=== PATIENT | female | born 1990 | race Caucasian/White ===

== ENCOUNTER 2019-01-17 16:54 | Emergency (ER) | payer BC, MEDICAID ==
[~2019-01-17] VITALS: Ht 154.9 cm; Wt 55.5 kg
[2019-01-17 17:34] LABS: BASOPHILS # (AUTO) 0.1 X10'3 (0-0.2); BASOPHILS % (AUTO) 0.6 % (0-1); EOSINOPHILS # (AUTO) 0.2 X10'3 (0-0.9); EOSINOPHILS % (AUTO) 2.2 % (0-6); HEMATOCRIT 38.5 % (35.0-45.0); LYMPHOCYTES # (AUTO) 2.5 X10'3 (1.1-4.8); LYMPHOCYTES % (AUTO) 22.7 % (21-51); MEAN CORPUSCULAR HEMOGLOBIN 30.8 PG (27.0-31.0); MEAN CORPUSCULAR HGB CONC 33.8 g/dL (33.0-36.5); MEAN CORPUSCULAR VOLUME 91.3 FL (78-98); MEAN PLATELET VOLUME 9.2 FL (7.4-10.4); MONOCYTES # (AUTO) 0.5 X10'3 (0-0.9); NEUTROPHILS # (AUTO) 7.6 X10'3 (1.8-7.7); NEUTROPHILS % (AUTO) 69.5 % (42-75); PLATELET COUNT 208 X10'3 (140-440); RED BLOOD COUNT 4.21 X10'6 (4.20-5.60); RED CELL DISTRIBUTION WIDTH 15.3 % (11.5-14.5); WHITE BLOOD COUNT 10.9 X10'3 (4.5-11.0)
[2019-01-17 18:06] LABS: ALANINE AMINOTRANSFERASE 21 U/L (12-78); ALBUMIN 3.9 G/DL (3.4-5.0); ALBUMIN/GLOBULIN RATIO 1.4 (1.1-1.5); ALKALINE PHOSPHATASE 32 IU/L (46-116); ANION GAP 10 (8-16); ASPARTATE AMINO TRANSFERASE 15 U/L (10-37); BILIRUBIN,TOTAL 0.3 MG/DL (0.1-1.0); BLOOD UREA NITROGEN 10 MG/DL (7-18); BUN/CREATININE RATIO 11.8 (6.6-38.0); CALCIUM 8.6 MG/DL (8.5-10.1); CHLORIDE 106 MMOL/L (99-107); CREATININE 0.85 MG/DL (0.40-0.90); GLUCOSE 91 MG/DL (70-104); POTASSIUM 3.3 MMOL/L (3.5-5.1); SODIUM 143 MMOL/L (135-145); TOTAL CARBON DIOXIDE 27.5 MMOL/L (24-32); TOTAL PROTEIN 6.7 G/DL (6.4-8.2); eGFR 79 ML/MIN
[2019-01-17 18:15] VITALS: BP 126/72
== END 2019-01-17 19:32 | disposition home or self-care (01) ==
LOC: ER 16:55
DX: R55 Syncope and collapse (principal)
CPT/HCPCS: 36415; 80053; 82948; 85025; 93005; 99284

== ENCOUNTER 2019-03-04 09:57 | Emergency (ER) | payer BC ==
[~2019-03-04] VITALS: Ht 154.9 cm; Wt 53.6 kg
[2019-03-04] MEDS ORDERED: PROC-8 PO (12:49)
[2019-03-04] MEDS ORDERED: ondansetron 4mg rapidly disintigrating tab PO ONE (12:50)
[2019-03-04 12:56] VITALS: BP 124/69
== END 2019-03-04 12:58 | disposition home or self-care (01) ==
LOC: ER 09:58
DX: R00.2 Palpitations (principal); R51 Headache; F17.200 Nicotine dependence, unspecified, uncomplicated
CPT/HCPCS: 93005; 99283

== ENCOUNTER 2020-02-17 21:58 | Emergency (ER) | payer BC, OTHER ==
[~2020-02-17] VITALS: Ht 154.9 cm; Wt 68.2 kg
[~2020-02-17 21:58] MED LIST: PROC-8 PO
[2020-02-17] MEDS ORDERED: naloxone 2mg/2ml inj IV STA (22:11)
[2020-02-17] MEDS ORDERED: ondansetron/PF 4mg/2ml inj IV ONE (22:20)
[2020-02-17] MEDS ORDERED: normal saline 1000ML IV soln IVB ONE (22:25)
[2020-02-18 00:21] VITALS: BP 129/78
== END 2020-02-17 23:48 | disposition home or self-care (01) ==
LOC: ER 21:59
DX: T40.1X1A Poisoning by heroin, accidental (unintentional), initial encounter (principal); Z79.899 Other long term (current) drug therapy; Y92.59 Other trade areas as the place of occurrence of the external cause
CPT/HCPCS: 93005; 96361; 96374; 96375; 99284; J2310; J2405; J7030

== ENCOUNTER 2020-09-19 12:12 | Emergency (ER) | payer MEDICAID, OTHER ==
[~2020-09-19] VITALS: Ht 154.9 cm; Wt 56.3 kg
[2020-09-19 12:24] VITALS: BP 110/76
[2020-09-19] MEDS ORDERED: IBUP-1984 PO (12:46)
[2020-09-19] MEDS ORDERED: CLIN300C70 PO (12:46)
== END 2020-09-19 13:24 | disposition home or self-care (01) ==
LOC: ER 12:12
DX: K04.7 Periapical abscess without sinus (principal); F11.90 Opioid use, unspecified, uncomplicated; Z79.899 Other long term (current) drug therapy
CPT/HCPCS: 99283

== ENCOUNTER 2020-11-19 10:04 | Emergency (ER) | payer MEDICAID ==
[~2020-11-19] VITALS: Ht 154.9 cm; Wt 56.8 kg
[2020-11-19 12:32] VITALS: BP 105/56
[2020-11-19] MEDS ORDERED: acetaminophen 325mg/10.15ml oral unit dose solution PO ONE (12:35)
[2020-11-19 12:36] LABS: BASOPHILS % (AUTO) 0.4 % (0-1); EOSINOPHILS # (AUTO) 0.1 X10'3 (0-0.9); EOSINOPHILS % (AUTO) 1.3 % (0-6); HEMATOCRIT 34.6 % (35.0-45.0); HEMOGLOBIN 11.7 g/dl (12.0-16.0); LYMPHOCYTES # (AUTO) 1.5 X10'3 (1.1-4.8); LYMPHOCYTES % (AUTO) 15.1 % (21-51); MEAN CORPUSCULAR HEMOGLOBIN 28.2 PG (27.0-31.0); MEAN CORPUSCULAR HGB CONC 33.7 g/dL (33.0-36.5); MEAN CORPUSCULAR VOLUME 83.8 FL (78-98); MEAN PLATELET VOLUME 8.9 FL (7.4-10.4); MONOCYTES # (AUTO) 1.2 X10'3 (0-0.9); MONOCYTES % (AUTO) 12.4 % (2-12); NEUTROPHILS # (AUTO) 7.1 X10'3 (1.8-7.7); NEUTROPHILS % (AUTO) 70.8 % (42-75); PLATELET COUNT 208 X10'3 (140-440); RED BLOOD COUNT 4.13 X10'6 (4.20-5.60); RED CELL DISTRIBUTION WIDTH 14.2 % (11.5-14.5); WHITE BLOOD COUNT 10.1 X10'3 (4.5-11.0)
[2020-11-19] MEDS ORDERED: acetaminophen 325mg tablet PO ONE (12:50)
[2020-11-19 12:54] LABS: ALANINE AMINOTRANSFERASE 16 U/L (12-78); ALBUMIN 2.7 G/DL (3.4-5.0); ALBUMIN/GLOBULIN RATIO 0.6 (1.1-1.5); ALKALINE PHOSPHATASE 70 IU/L (46-116); ANION GAP 9 (8-16); ASPARTATE AMINO TRANSFERASE 12 U/L (10-37); BILIRUBIN,TOTAL 0.4 MG/DL (0.1-1.0); BLOOD UREA NITROGEN 6 MG/DL (7-18); BUN/CREATININE RATIO 9.7 (6.6-38.0); CALCIUM 8.3 MG/DL (8.5-10.1); CHLORIDE 98 MMOL/L (99-107); CREATININE 0.62 MG/DL (0.40-0.90); GLUCOSE 104 MG/DL (70-104); SODIUM 135 MMOL/L (135-145); TOTAL CARBON DIOXIDE 28.1 MMOL/L (24-32); TOTAL PROTEIN 7.2 G/DL (6.4-8.2); eGFR > 90 ML/MIN
[2020-11-19 12:59] LABS: POTASSIUM 2.9 MMOL/L (3.5-5.1)
[2020-11-19] MEDS ORDERED: potassium Cl 20 mEq SR tablet PO STA (13:22)
[2020-11-19] MEDS ORDERED: ondansetron 4mg rapidly disintigrating tab PO ONE (13:25)
== END 2020-11-19 14:19 | disposition home or self-care (01) ==
LOC: ER 10:04
DX: U07.1 COVID-19 (principal); E87.6 Hypokalemia; R51.9 Headache, unspecified; R07.89 Other chest pain; R43.8 Other disturbances of smell and taste; R11.2 Nausea with vomiting, unspecified; R50.9 Fever, unspecified; F11.90 Opioid use, unspecified, uncomplicated; Z88.0 Allergy status to penicillin; Z79.899 Other long term (current) drug therapy
CPT/HCPCS: 36415; 71045; 80053; 84145; 85025; 87635; 93005; 99285; C9803